=== PATIENT | female | born 1995 | race Caucasian/White ===

== ENCOUNTER → 2019-04-07 | Outpatient (CLI) | payer OTHER ==
--- NOTE | 2019-04-07 17:12 | KCIC ---
3 view study of the left ankle Clinical indications: Left ankle injury. Patient fell down a few steps and twisted left ankle. Left ankle pain. FINDINGS: No acute fracture or dislocation or lytic process is seen. The mortise ankle joint is intact. IMPRESSION: No acute osseous abnormality. Electronically signed by: Eliezer Dodson MD (04/07/2019 5:09 PM) [id number]
== END | disposition home or self-care (01) ==
LOC: KCIC 12:43
PROVIDERS: ATTEND Family Medicine
DX: S99.912A Unspecified injury of left ankle, initial encounter (principal); X58.XXXA Exposure to other specified factors, initial encounter; Y93.89 Activity, other specified; Y92.89 Other specified places as the place of occurrence of the external cause; Y99.8 Other external cause status
CPT/HCPCS: 73610

== ENCOUNTER 2022-03-02 21:22 | Emergency (ER) | payer OTHER ==
[~2022-03-02] VITALS: Ht 175.3 cm; Wt 85.2 kg
[2022-03-02] MEDS ORDERED: HYDROmorphone 2 MG/ML INJ. ONE (21:27)
[2022-03-02] MEDS ORDERED: HYDROmorphone 2 MG/ML INJ. IVP ONE (21:30)
[2022-03-02] MEDS ORDERED: PROPOFOL 10 MG/ML (20ML) VIAL. IV ONE (21:45)
[2022-03-02 22:00] VITALS: BP 132/75
[2022-03-02] MEDS ORDERED: OXYC1TAB15 PO (22:27)
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
[2022-03-02] MEDS ORDERED: ONDANSETRON PF 4 MG/2 ML VIAL. IVP ONE (22:30)
--- NOTE | 2022-03-02 22:39 | RAD ---
EXAM: AP and lateral view of the right tibia/fibula AP and lateral views of the right ankle DATE: 03/02/2022 9:53 PM INDICATION: Reason: dislocation / Spl. Instructions: / History: . COMPARISON: No Prior FINDINGS/ IMPRESSION: There is a mildly displaced transverse fracture through the base of the medial malleolus. There is a displaced oblique fracture of the distal fibular diametaphysis, in apex anterior angulatio n. There is posterior dislocation of the talus relative to the tibia. No proximal tibial or fibular fracture. Electronically signed by: Ran Hillman MD (03/02/2022 10:37 PM) [facility]
--- NOTE | 2022-03-02 22:44 | RAD ---
EXAM: 2 views of the right ankle 2 views right foot DATE: 03/02/2022 10:17 PM INDICATION: Reason: dislocation / Spl. Instructions: / History: COMPARISON: No Prior FINDINGS: Overlying cast obscures fine bony detail. Interval reduction of the right ankle joint in anatomic alignment. Oblique fracture distal tibia and transverse fracture medial malleolus appear mildly displaced. Within the constraints of overlying gilbert t no definite midfoot or forefoot fracture is seen. There may be offset at the calcaneocuboid joint. IMPRESSION: 1. Interval reduction of the ankle joint. 2. Mildly displaced oblique fracture distal fibular diametaphysis and transverse fracture medial mal leolus. 3. Equivocal calcaneocuboid joint subluxation, possibly positional. Electronically signed by: Ran Hillman MD (03/02/2022 10:42 PM) [facility]
[2022-03-02] MEDS ORDERED: HYDROcodone/APAP 7.5/325MG 1 TAB TABLET PO ONE (23:00)
[2022-03-03] VITALS: BP 110/65
[2022-03-03] MEDS ORDERED: fentaNYL PF VIAL 100 MCG/2 ML VIAL IVP ONE (00:30)
== END 2022-03-03 01:05 | disposition home or self-care (01) ==
LOC: ER 21:22
DX: S93.04XA Dislocation of right ankle joint, initial encounter (principal); F17.200 Nicotine dependence, unspecified, uncomplicated; W05.1XXA Fall from non-moving nonmotorized scooter, initial encounter; Y93.89 Activity, other specified; Y92.89 Other specified places as the place of occurrence of the external cause; Y99.8 Other external cause status
CPT/HCPCS: 27810; 73590; 73600; 73620; 96374; 99152; 99285; J1170; J2405; J2704; J3010